=== PATIENT | male | born 1955 | race Caucasian/White ===

== ENCOUNTER 2024-12-29 07:46 | Observation (INO) | payer MEDICARE ==
[~2024-12-29] VITALS: Ht 180.3 cm; Wt 93.2 kg
[2024-12-29] MEDS ORDERED: ATOR80TA59 PO (08:02)
[2024-12-29] MEDS ORDERED: CARV3.12 PO (08:02)
[2024-12-29] MEDS ORDERED: LOSA50TA28 PO (08:02)
[2024-12-29] MEDS ORDERED: CLOP75TA2 PO (08:02)
[2024-12-29] MEDS: MORPHINE 2 MG/ML 1 ML VIAL IV ONE ×2 (08:54→13:06)
[2024-12-29 08:57] LABS: BASO # 0.0 10^3/uL (0.0-0.2); BASO % 0.3 % (0.0-1.0); EOS # 0.1 10^3/uL (0.0-0.5); EOS % 0.7 % (0.0-3.0); LYMPH # 2.5 10^3/uL (1.5-5.0); LYMPH % 27.7 % (24.0-44.0); MONO # 0.5 10^3/uL (0.0-0.8); MONO % 6.0 % (2.0-8.0); NEUTROPHILS # 5.8 10^3/uL (1.5-8.5); NEUTROPHILS % 64.7 % (36.0-66.0); PLATELET COUNT, AUTOMATED 188 10^3/uL (150-450)
[2024-12-29 09:22] LABS: KETONE, URINE AUTO RFX NEGATIVE (NEGATIVE); LEUKOCYTE ESTERASE UR AUTO RFX NEGATIVE (NEGATIVE); NITRITE, URINE AUTO RFX NEGATIVE (NEGATIVE); RBC, URINE AUTO RFX 1 /HPF (0-3); SQUAM EPITHELIAL CELL UR AURFX 0 /HPF (0-6); WBC, URINE AUTO RFX 0 /HPF (0-3)
[2024-12-29 09:27] LABS: CK-MB VALUE MASS 3.0 NG/ML (<3.6)
[2024-12-29 09:30] LABS: ALT/SGPT 34 U/L (7.0-40); AST/SGOT 26 U/L (<34); CPK CREATINE PHOSPHOKINASE 112 U/L (46-171); MB/CK RELATIVE INDEX 2.67 (< OR =4)
[2024-12-29] MEDS ORDERED: ISOVUE-370 76% 100 ML VIAL As Ordered ONE (09:30)
[2024-12-29] MEDS ORDERED: HOME MED LIST COMPLETE! XX SCH (10:00)
[2024-12-29] MEDS ORDERED: IBUP600T42 PO (10:00)
[2024-12-29] MEDS ORDERED: MAALOX 30 ML SUSP *UDC PO PRN (14:15)
[2024-12-29] MEDS ORDERED: MOM 30 ML SUSPENSION UDC PO PRN (14:15)
[2024-12-29] MEDS ORDERED: ACETAMINOPHEN 325 MG TAB PO PRN (14:15)
[2024-12-29 14:56] LABS: C REACTIVE PROTEIN QUANTITATIV < 0.50 MG/DL (<1.0)
[2024-12-29 15:15] VITALS: BP 152/78; TEMP 97.9; O2SAT 100
[2024-12-29] MEDS: NS (Normal Saline) 0.9% 1,000 ML IV SCH (15:31)
[2024-12-29] MEDS: cefTRIAXone SOD 1 GM in DEXTROSE 5% (D5W) ADV/MINI-BAG 50 ML IV SCH (15:34)
[2024-12-29] MEDS: metroNIDAZOLE 500 MG in IV 1 EA IV SCH (16:29)
[2024-12-29 20:13] VITALS: BP 137/80; TEMP 98.1; O2SAT 95
[2024-12-29] MEDS: DOCUSATE SODIUM 100 MG CAPSULE PO SCH (20:17)
[2024-12-29] MEDS: BISACODYL 10 MG SUPP PR SCH (20:47)
[2024-12-29] MEDS: KETOROLAC 30 MG/ML 1 ML VIAL IV ONE (20:51)
[2024-12-29] MEDS: ACETAMINOPHEN *IV* 1,000 MG in IV 1 EA IV SCH (21:06)
[2024-12-30 04:40] VITALS: BP 155/98; TEMP 97.7; O2SAT 98
[2024-12-30 07:00] LABS: BASO # 0.0 10^3/uL (0.0-0.2); BASO % 0.1 % (0.0-1.0); EOS # 0.1 10^3/uL (0.0-0.5); EOS % 0.8 % (0.0-3.0); LYMPH # 2.5 10^3/uL (1.5-5.0); LYMPH % 35.7 % (24.0-44.0); MONO # 0.5 10^3/uL (0.0-0.8); MONO % 7.1 % (2.0-8.0); NEUTROPHILS # 4.0 10^3/uL (1.5-8.5); NEUTROPHILS % 56.0 % (36.0-66.0); PLATELET COUNT, AUTOMATED 170 10^3/uL (150-450)
[2024-12-30 07:31] LABS: CALCIUM LEVEL 9.2 MG/DL (8.3-10.6); CARBON DIOXIDE LEVEL 24 MMOL/L (20-31); CHLORIDE LEVEL 108 MMOL/L (98-107); CREATININE FOR GFR 0.84 MG/DL (0.70-1.30); GLOMERULAR FILTRATION RATE > 90.0 (>49); MAGNESIUM LEVEL 2.0 MG/DL (1.8-2.4); POTASSIUM SERUM 4.3 MMOL/L (3.5-5.1); SODIUM LEVEL 141 MMOL/L (136-145)
[2024-12-30] MEDS: CLOPIDOGREL 75 MG TAB PO SCH (09:01)
[2024-12-30] MEDS: ATORVASTATIN 20 MG TAB PO SCH (09:02)
[2024-12-30 09:04] VITALS: BP 174/87
[2024-12-30] MEDS: LOSARTAN 50 MG TABLET PO SCH (09:04)
[2024-12-30] MEDS: LIDOCAINE 5% PATCH TD SCH (11:45)
[2024-12-30 12:04] VITALS: BP 160/74; TEMP 97.5; O2SAT 98
[2024-12-30] MEDS ORDERED: LIDO5TD TD (14:43)
[2024-12-30] MEDS ORDERED: CEFD1CAP9 PO (14:43)
[2024-12-30] MEDS ORDERED: OXYC-517 PO (14:43)
[2024-12-30] MEDS ORDERED: METR-265 PO (14:43)
[2024-12-30] MEDS ORDERED: ENOXAPARIN 40 MG/0.4 ML SYRINGE (J1650 PER 10MG) SC SCH (21:00)
== END 2024-12-30 15:43 | disposition home or self-care (01) ==
LOC: M ED 07:46 → M ED INP 07:47 → M MS4PR 15:15
PROVIDERS: ADMIT Internal Medicine; ATTEND Internal Medicine
DX: R10.32 Left lower quadrant pain (principal); I10 Essential (primary) hypertension; E78.5 Hyperlipidemia, unspecified; R73.03 Prediabetes; Z79.899 Other long term (current) drug therapy; D17.71 Benign lipomatous neoplasm of kidney; R22.1 Localized swelling, mass and lump, neck; I25.10 Atherosclerotic heart disease of native coronary artery without angina pectoris; Z98.61 Coronary angioplasty status
CPT/HCPCS: 36415; 74174; 74177; 76775; 80047; 80048; 80076; 81001; 82550; 82553; 83605; 83690; 83735; 84145; 84484; 85025; 86140; 93005; 93041; 96361; 96365; 96366; 96367; 96375; 96376; 99285; G0378; J0131; J0696; J1836; J1885; Q9967

== ENCOUNTER → 2025-01-17 | Outpatient (REF) | payer MEDICARE ==
[~2025-01-17] MED LIST: ATOR80TA59 PO; CARV3.12 PO; CEFD1CAP9 PO; CLOP75TA2 PO; IBUP600T42 PO; LIDO5TD TD; LOSA50TA28 PO; METR-265 PO; OXYC-517 PO
[2025-01-17 12:58] LABS: PSA SCREENING 1.21 NG/ML (< 4.00)
[2025-01-17 13:09] LABS: ALT/SGPT 43 U/L (7.0-40); AST/SGOT 34 U/L (<34); CALCIUM LEVEL 10.0 MG/DL (8.3-10.6); CARBON DIOXIDE LEVEL 29 MMOL/L (20-31); CHLORIDE LEVEL 107 MMOL/L (98-107); CHOLESTEROL LEVEL 159 MG/DL (<200); CHOLESTEROL RISK RATIO 3.75 (<5); CREATININE FOR GFR 0.83 MG/DL (0.70-1.30); GLOMERULAR FILTRATION RATE > 90.0 (>49); LDL CHOLESTEROL 78.5 MG/DL (<100); NON-HDL-C 116.7 MG/DL; POTASSIUM SERUM 4.7 MMOL/L (3.5-5.1); SODIUM LEVEL 141 MMOL/L (136-145); TRIGLYCERIDES LEVEL 191 MG/DL (<150)
[2025-01-17 13:35] LABS: ESTIMATED AVERAGE GLUCOSE 148.0 MG/DL (60-110)
== END ==
LOC: M LAB REF 12:20
PROVIDERS: ATTEND Nurse Practitioner Family
DX: N40.0 Benign prostatic hyperplasia without lower urinary tract symptoms (principal); Z80.42 Family history of malignant neoplasm of prostate; N39.41 Urge incontinence; E66.3 Overweight; Z12.5 Encounter for screening for malignant neoplasm of prostate; Z79.899 Other long term (current) drug therapy
CPT/HCPCS: 80053; 80061; 83036; 84443; G0103

== ENCOUNTER 2025-02-09 09:40 | Day surgery (SDC) | payer MEDICARE ==
[~2025-02-09] VITALS: Ht 177.8 cm; Wt 93.9 kg
[~2025-02-09 09:40] MED LIST changes: +MAGN200T PO; +THERTAB52 PO
[2025-02-09] MEDS ORDERED: LIDOCAINE 2% 100 MG/5 ML SDV (FOR ANES.) As Ordered ONE (10:36)
[2025-02-09 12:15] VITALS: TEMP 97.3
[2025-02-09 12:28] VITALS: BP 127/73; O2SAT 76
== END 2025-02-09 12:41 | disposition home or self-care (01) ==
LOC: M OPP 09:40
PROVIDERS: ATTEND Surgery
DX: Z12.11 Encounter for screening for malignant neoplasm of colon (principal); D12.6 Benign neoplasm of colon, unspecified; K20.90 Esophagitis, unspecified without bleeding; K25.9 Gastric ulcer, unspecified as acute or chronic, without hemorrhage or perforation; K29.80 Duodenitis without bleeding; Z95.5 Presence of coronary angioplasty implant and graft; Z86.73 Personal history of transient ischemic attack (TIA), and cerebral infarction without residual deficits; Z79.899 Other long term (current) drug therapy
CPT/HCPCS: 43239; 45385; 88305; J3010

== ENCOUNTER → 2025-02-13 | Outpatient (REF) | payer MEDICARE ==
[2025-02-14 14:18] LABS: CREATININE, URINE 108.7 MG/DL; MALB URINE SIEMENS < 3.0 MG/L
== END ==
LOC: M LAB REF 12:24
PROVIDERS: ATTEND Nurse Practitioner Family
DX: E11.9 Type 2 diabetes mellitus without complications (principal)